=== PATIENT | male | born 1995 | race Native Hawaiian/Other Pacific Islander ===

== ENCOUNTER 2018-03-10 16:44 | Emergency (ER) | payer SELFPAY ==
--- NOTE | 2018-03-10 16:58 | ED Physician Documentation ---
General Adult - HISTORIAN Historian: patient - HPI Stated Complaint: ? Insect Bite to the Back Chief Complaint: General Adult Onset: days ago (7) Timing: still present, worse since Further Comments: yes (Pt is a 22 yo male with an abscess on his L upper back that he has had for about a week. Pt has not had n/v/fever. Pt applied topical abx, but this was not effective.) - ROS CONST: no problems EYES/ENT: none CVS/RESP: none GI/: none MS/SKIN/LYMPH: other (abscess L upper back) - PAST HX Past History: none Allergies/Adverse Reactions: Allergies Allergy/AdvReac Type Severity Reaction Status Date / Time No Known Allergies Allergy Unverified 03/10/18 16:55 Home Medications: Ambulatory Orders Medication Instructions Recorded NK [NK] 03/10/18 - SOCIAL HX Smoking History: cigarettes - FAMILY HX Family History: No - VITAL SIGNS Vital Signs: Vital Signs Temp Pulse Resp BP Pulse Ox 98.4 F 97 H 18 157/77 98 03/10/18 16:45 03/10/18 16:45 03/10/18 16:45 03/10/18 16:45 03/10/18 16:45 - REVIEWED ASSESSMENTS Nursing Assessment Reviewed: Yes Vitals Reviewed: Yes Progress - Progress Progress: Rx Doxycycline 100 mg. Take one every 12 hrs for 10 days. Avoid prolonged sun exposure while taking this medication. General Adult Physical Exam - PHYSICAL EXAM GENERAL APPEARANCE: no distress EENT: pharynx normal NECK: normal inspection, supple RESPIRATORY: no resp distress, chest non-tender, breath sounds normal CVS: reg rate & rhythm, heart sounds normal ABDOMEN: soft, no organomegaly, normal bowel sounds BACK: other (4 cm abscess, L upper back with mild induraion and some central darkening) SKIN: other (4 cm abscess, L upper back with mild induraion and some central darkening) EXTREMITIES: non-tender, normal range of motion, no evidence of injury NEURO: oriented X3, motor nml, sensation nml Discharge Clincal Impression: abscess, possible insect bite Referrals: Primary Doctor,No [Primary Care Provider] - 2 Days Condition: Stable Disposition: 01 HOME, SELF-CARE Decision to Admit: NO Decision Time: 17:02
[2018-03-10] MEDS ORDERED: DIPH,PERTUSS(ACELL),TET VAC/PF 0.5 ML DISP.SYRIN IM ONE (17:02)
[2018-03-10 17:20] VITALS: BP 140/68
== END 2018-03-10 17:16 | disposition home or self-care (01) ==
LOC: ED 16:44
DX: L02.91 Cutaneous abscess, unspecified (principal)
CPT/HCPCS: 90471; 90715; 99282